=== PATIENT | female | born 1985 ===

== ENCOUNTER → 2016-09-09 | Outpatient (CLI) | payer OTHER | LOC: FIMAGING 12:50 | DX: O09.212 Supervision of pregnancy with history of pre-term labor, second trimester (principal); Z3A.19 19 weeks gestation of pregnancy ==

== ENCOUNTER 2016-11-16 18:17 | Emergency (ER) | payer MEDICAID, OTHER ==
[2016-11-16 18:29] VITALS: BP 93/65; PULSE 85; RESP 18; TEMP 99.1; O2SAT 97
== END 2016-11-16 18:44 | disposition left against medical advice (07) ==
LOC: CED 18:17
DX: Z53.21 Procedure and treatment not carried out due to patient leaving prior to being seen by health care provider (principal)